=== PATIENT | female | born 1980 | race Two or more races ===

== ENCOUNTER 2018-06-14 11:47 | Inpatient (IN) | payer OTHER ==
[~2018-06-14] VITALS: Ht 154.9 cm; Wt 67.8 kg
[2018-06-14] MEDS ORDERED: MORPHINE SULF INJ 2 MG/ML SYRINGE 1ML IV ONE (12:15)
[2018-06-14] MEDS ORDERED: ONDANSETRON HCL 4 MG/2 ML VIAL IV ONE ×2 (12:15→15:15)
[2018-06-14] MEDS: SODIUM CHLORIDE 0.9% 1,000 ML IV SCH ×3 (12:34→20:29)
[2018-06-14 12:59] LABS: Basophils # (auto) 0 uL; Basophils % (auto) 0.5 % (0.0-2.0); Eosinophils # (auto) 0 uL; Eosinophils % (auto) 0.7 % (0.0-7.0); Hematocrit 42.3 % (36.0-46.0); Hemoglobin 14.4 g/dL (12.2-16.2); Lymphocytes # (auto) 1.2 uL; Lymphocytes % (auto) 16.9 % (10.0-50.0); Mean Corpuscular Hemoglobin 31.8 pg (28.0-32.0); Mean Corpuscular Volume 93.4 fL (80.0-100.0); Monocytes # (auto) 0.4 uL; Monocytes % (auto) 6.1 % (0.0-12.0); Neutrophils # (auto) 5.4 uL; Neutrophils % (auto) 75.8 % (37.0-80.0); Platelet Count (auto) 169 10^3/uL (140-450); Red Blood Cells 4.53 10^6/uL (4.0-5.20); Red Cell Distribution Width 13.1 % (11.8-14.3); White Blood Cell 7.1 10^3/uL (4.4-10.8)
[2018-06-14 13:16] LABS: Albumin 3.9 g/dL (3.4-5.0); BUN/Creatinine Ratio 24.7; Calcium 8.4 mg/dL (8.5-10.1); Potassium 3.4 mmol/L (3.5-5.1)
[2018-06-14 13:19] LABS: Bilirubin, Total 1.1 mg/dL (0.2-1.0); Total Protein 7.2 g/dL (6.4-8.2)
[2018-06-14 13:55] LABS: Urine Amorphous Crystal FEW /hpf (None Seen); Urine Bacteria NONE SEEN /hpf (None Seen); Urine Blood Negative /uL (Negative); Urine Specific Gravity 1.013 (1.001-1.035); Urine WBC 4 /hpf (0 - 5)
[2018-06-14 14:03] LABS: Alcohol, Urine < 3.0 mg/dL (0-5); Amphetamine Screen, Urine NEGATIVE (NEGATIVE); Barbiturate Scree,Urine NEGATIVE (NEGATIVE); Benzodiazephine Screen, Urine NEGATIVE (NEGATIVE); Cannabinoid Screen, Urine NEGATIVE (NEGATIVE); Cocaine Screen, Urine NEGATIVE (NEGATIVE); Opiate Scree,Urine NEGATIVE (NEGATIVE); Phencyclidine Screen, Urine NEGATIVE (NEGATIVE)
[2018-06-14] MEDS ORDERED: MORPHINE SULFATE 4 MG/ML SYR/VIAL IV ONE (15:15)
[2018-06-14] MEDS ORDERED: metroNIDAZOLE 500MG/100ML 100 ML IV ONE (16:30)
[2018-06-14] MEDS ORDERED: cefTRIAXone 1GM/50ML D5W 50 ML IV ONE (16:30)
[2018-06-14] MEDS ORDERED: MORPHINE SULFATE 4 MG/ML SYR/VIAL IV PRN ×2 (18:30)
[2018-06-14] MEDS ORDERED: MORPHINE SULF INJ 2 MG/ML SYRINGE 1ML IV PRN (18:30)
[2018-06-14] MEDS ORDERED: NITROGLYCERIN 0.4 MG SL TAB SL PRN (18:30)
[2018-06-14] MEDS: FAMOTIDINE (10MG/ML) 2ML VL IV SCH (18:43)
[2018-06-14] MEDS: POTASSIUM CHL 20MEQ/100ML 100 ML IV SCH ×2 (20:30→23:24)
--- NOTE | 2018-06-14 20:30 | NUR ---
[facility] admit from ER YULI FORD admitted to [facility]. Patient oriented to Sharee Erazo, primary RN, unit, room, bed, and unit policies regarding patient care and visiting hours. Patient weighed by bedscale and encouraged to call if they need something. All questions and concerns addressed, patient verbalized understanding. Note:
[2018-06-14 22:00] VITALS: BP 100/57
[2018-06-14 22:30] LABS: Amylase 67 U/L (25-115); Lipase 118 U/L (73-393)
[2018-06-15] VITALS (7 sets, daily range): BP systolic 96–120; BP diastolic 51–70
[2018-06-15] MEDS: metroNIDAZOLE 500MG/100ML 100 ML IV SCH ×4 (00:30→17:25)
[2018-06-15] MEDS: SODIUM CHLORIDE 0.9% 1,000 ML IV SCH ×5 (01:35→21:54)
[2018-06-15] MEDS: FAMOTIDINE (10MG/ML) 2ML VL IV SCH ×2 (06:07→17:26)
--- NOTE | 2018-06-15 07:50 | NUR ---
Opening Shift Note Assumed care of patient, comfortably resting in bed. Awake and alert on room air. No S/S of distress/SOB or pain. Instructed on POC and to call for assistance PRN. Bed at lowest position and call light within reach. Will continue to monitor for changes Q1hr and PRN.
[2018-06-15 08:07] LABS: Basophils # (auto) 0 uL; Basophils % (auto) 0.5 % (0.0-2.0); Eosinophils # (auto) 0.1 uL; Eosinophils % (auto) 1.8 % (0.0-7.0); Hematocrit 39.5 % (36.0-46.0); Hemoglobin 13.2 g/dL (12.2-16.2); Lymphocytes # (auto) 1.4 uL; Lymphocytes % (auto) 35.6 % (10.0-50.0); Mean Corpuscular Hemoglobin 31.6 pg (28.0-32.0); Mean Corpuscular Hgb Conc. 33.4 g/dL (32.0-36.0); Mean Corpuscular Volume 94.7 fL (80.0-100.0); Monocytes # (auto) 0.4 uL; Monocytes % (auto) 9.6 % (0.0-12.0); Neutrophils % (auto) 52.5 % (37.0-80.0); Nucleated Red Blood Cells % 0.1 %; Platelet Count (auto) 148 10^3/uL (140-450); Red Blood Cells 4.17 10^6/uL (4.0-5.20); Red Cell Distribution Width 13.2 % (11.8-14.3); White Blood Cell 3.9 10^3/uL (4.4-10.8)
[2018-06-15 08:30] LABS: Albumin 3.4 g/dL (3.4-5.0); BUN/Creatinine Ratio 20.3; Calcium 8.1 mg/dL (8.5-10.1); Potassium 4.4 mmol/L (3.5-5.1)
[2018-06-15 08:32] LABS: Total Protein 6.4 g/dL (6.4-8.2)
[2018-06-15] MEDS: cefTRIAXone 1GM/50ML D5W 50 ML IV SCH (10:34)
[2018-06-15] MEDS ORDERED: traMADol HCL 50 MG TAB PO PRN (11:30)
--- NOTE | 2018-06-15 13:10 | NUR ---
Paged for Dr. Fry . Awaiting call back.
--- NOTE | 2018-06-15 13:11 | NUR ---
Dr. Fry ordered a Hida scan, order read back and verified.
[2018-06-15] MEDS ORDERED: MORPHINE SULF INJ 2 MG/ML SYRINGE 1ML IV ONE (13:15)
[2018-06-15] MEDS ORDERED: ACETAMINOPHEN 325 MG TAB PO PRN (14:30)
[2018-06-15] MEDS: PROMETHAZINE HCL 25 MG/ML 1ML IV PRN ×2 (14:43→18:52)
[2018-06-15 15:23] LABS: INR 1.08 (0.9-1.15); Partial Thromboplastin Time 27.8 sec (23.78-33.04); Prothrombin Time 11.5 sec (9.27-12.13)
--- NOTE | 2018-06-15 18:47 | NUR ---
Patient c/o n/v. Patient is vomiting a small amount of saliva . No c/o of pain. Will medicate as prescribed by MD.
--- NOTE | 2018-06-15 19:11 | NUR ---
closing note: Patient sitting up in bed, no s/s of pain. Bed at lowest position and call light at bedside. Family at bedside. will endorse care to NOC RN.
--- NOTE | 2018-06-15 19:30 | NUR ---
Opening Shift Note Received report from roshni Rivera RN. Assumed care of patient, comfortably resting in bed. Awake and alert on room air. No S/S of distress/SOB or pain. Instructed on POC and to call for assistance PRN. Bed at lowest position and call light within reach. Will continue to monitor for changes Q1hr and PRN.
[2018-06-16] MEDS: metroNIDAZOLE 500MG/100ML 100 ML IV SCH ×4 (00:49→17:42)
[2018-06-16 05:15] VITALS: BP 104/52
[2018-06-16] MEDS: FAMOTIDINE (10MG/ML) 2ML VL IV SCH ×2 (07:00→17:42)
[2018-06-16] MEDS: SODIUM CHLORIDE 0.9% 1,000 ML IV SCH ×4 (07:19→22:20)
[2018-06-16 07:20] VITALS: BP 93/55
--- NOTE | 2018-06-16 07:40 | NUR ---
Opening Shift Note Assumed care of patient, patient comfortably sleeping. No S/S of distress/SOB or pain. Bed at lowest position and call light within reach. Will continue to monitor for changes Q1hr and PRN.
[2018-06-16 08:00] VITALS: BP 93/55
[2018-06-16] MEDS: cefTRIAXone 1GM/50ML D5W 50 ML IV SCH (09:48)
--- NOTE | 2018-06-16 10:36 | NUR ---
PAGED FOR Dr. FITCH REGARDING PATIENTS DIET.AWAITING CALL BACK.
[2018-06-16 11:23] VITALS: BP 97/52
--- NOTE | 2018-06-16 12:59 | NUR ---
Second page for for Dr. Fry regarding patients diet, per Dr. Davies.
--- NOTE | 2018-06-16 13:30 | NUR ---
Dr. Fry returned my call. Ordered for patient to continue NPO diet for HIDA scan tomorrow.
[2018-06-16 16:30] VITALS: BP 108/60
[2018-06-16 22:08] VITALS: BP 111/64
[2018-06-17] MEDS: metroNIDAZOLE 500MG/100ML 100 ML IV SCH ×3 (00:07→12:12)
[2018-06-17] MEDS: SODIUM CHLORIDE 0.9% 1,000 ML IV SCH ×3 (05:24→17:45)
[2018-06-17 05:41] VITALS: BP 105/58
[2018-06-17] MEDS: FAMOTIDINE (10MG/ML) 2ML VL IV SCH ×2 (06:27→17:44)
--- NOTE | 2018-06-17 07:04 | NUR ---
END OF SHIFT NOTE Patient denies any abdominal pain, c/o mild nausea, refused to take medication. Kept NPO for HIDA Scan today and possible surgery, receiving IVF, abx and pepcid IV.
--- NOTE | 2018-06-17 08:00 | NUR ---
RECEIVED PT RESTING IN BED, CALL LIGHT WITH IN REACH, PT REPORTS NAUSEA BUT REFUSES THE [place] MEDICATION AT THIS TIME, PT REPORTS PAIN ON UPPER ABDOMEN AREA, PT REFUSED PAIN MEDICATION AT THIS TIME TOO. WILL CONTINUE TO MONITOR PT.
[2018-06-17 08:43] VITALS: BP 118/62
[2018-06-17] MEDS: cefTRIAXone 1GM/50ML D5W 50 ML IV SCH (08:56)
--- NOTE | 2018-06-17 10:15 | NUR ---
PT TAKEN TO NUCLEAR MEDICINE FOR HIDA SCAN.
--- NOTE | 2018-06-17 12:53 | NUR ---
DR. RECINOS AT BED SIDE TO SEE PT, DISCUSSED THE PLAN OF CARE WITH PT AND FAMILY, DR. RECINOS CALLED AND LEFT A MESSAGE TO DR. FITCH / SURGEON TO COME AND EVALUATE PT.
[2018-06-17] MEDS ORDERED: ONDANSETRON HCL 4 MG/2 ML VIAL IV PRN (13:00)
[2018-06-17 13:53] LABS: Basophils # (auto) 0 uL; Basophils % (auto) 0.4 % (0.0-2.0); Eosinophils # (auto) 0 uL; Eosinophils % (auto) 0.7 % (0.0-7.0); Hemoglobin 13.1 g/dL (12.2-16.2); Lymphocytes # (auto) 1.5 uL; Mean Corpuscular Hemoglobin 31.9 pg (28.0-32.0); Mean Corpuscular Hgb Conc. 33.7 g/dL (32.0-36.0); Mean Corpuscular Volume 94.7 fL (80.0-100.0); Monocytes # (auto) 0.5 uL; Monocytes % (auto) 8.6 % (0.0-12.0); Neutrophils # (auto) 3.6 uL; Neutrophils % (auto) 63.3 % (37.0-80.0); Nucleated Red Blood Cells % 0.1 %; Platelet Count (auto) 150 10^3/uL (140-450); Red Blood Cells 4.12 10^6/uL (4.0-5.20); Red Cell Distribution Width 13.1 % (11.8-14.3); White Blood Cell 5.6 10^3/uL (4.4-10.8)
--- NOTE | 2018-06-17 14:42 | NUR ---
Nutrition Assessment Notes please see attached link for complete assessment Est. Needs BW [id number] kcal (23-25 kcal/kgBW),64-70 gms pro (1.0-1.1 gms/kgBW). Will continue to monitor pertinent labs and reassess nutrient need prn. Addendum: 06/17/18 at [address] Amended: Links added.
--- NOTE | 2018-06-17 14:55 | NUR ---
DR. FITCH / SURGEON AT BED SIDE TO SEE PT, DOCTOR DISCUSSED THE PLAN OF CARE WITH PT AND ,
[2018-06-17 17:19] VITALS: BP 100/56
[2018-06-17 21:30] VITALS: BP 110/63
[2018-06-18] MEDS: SODIUM CHLORIDE 0.9% 1,000 ML IV SCH ×3 (03:00→14:20)
[2018-06-18 05:34] VITALS: BP 104/56
--- NOTE | 2018-06-18 05:54 | NUR ---
PATIENT TOLERATED CLEAR LIQUID DIET WELL, NO NAUSEA AND VOMITING. ADVANCE DIET TO FULL LIQUID FOR BREAKFAST.
[2018-06-18] MEDS: FAMOTIDINE (10MG/ML) 2ML VL IV SCH (06:02)
[2018-06-18 07:28] VITALS: BP 106/66
--- NOTE | 2018-06-18 08:00 | NUR ---
Morning note patient resting in bed with even and unlabored respirations, no distress noted. Instructed patient on POC, fall precautions, and to call for assistance as needed. Patient verbalized understanding. Fall precautions in place with bed in lowest locked position, x2 side rails up and call light within reach. Will continue to monitor q1hr & PRN.
--- NOTE | 2018-06-18 10:14 | NUR ---
Patient tolerated diet Patient tolerated breakfast meal tray. Will advance diet per MD's order.
[2018-06-18 11:40] VITALS: BP 131/68
--- NOTE | 2018-06-18 15:05 | NUR ---
Discharge Discharge education and paperwork given to the patient per MD's order. Patient verbalized understanding. IV removed with clean technique, catheter intact. Dressing applied. patient tolerated well. Patient instructed to collect personal belongings. Patient taken to private vehicle via wheelchair by staff member and spouse at side. No distress noted.
== END 2018-06-18 15:05 | disposition home or self-care (01) | DRG 446 ==
LOC: ER 11:47 → EDBD 11:47 → OVERFLOW 18:29 → WEST WING 19:33
PROVIDERS: ADMIT Internal Medicine; ATTEND Family Medicine
DX: K82.8 Other specified diseases of gallbladder (principal); E87.6 Hypokalemia; E86.0 Dehydration; K59.00 Constipation, unspecified; R11.2 Nausea with vomiting, unspecified; R63.4 Abnormal weight loss; Z82.49 Family history of ischemic heart disease and other diseases of the circulatory system; Z83.3 Family history of diabetes mellitus; Z87.891 Personal history of nicotine dependence; Z68.28 Body mass index [BMI] 28.0-28.9, adult
CPT/HCPCS: 36415; 71045; 74176; 74181; 76705; 78226; 80053; 80307; 81001; 81025; 82150; 83690; 85025; 85610; 85730; 86850; 86900; 86901; 93306; G0378; J0696; J2405; J3480; J3490